=== PATIENT | female | born 1995 | race Caucasian/White ===

== ENCOUNTER → 2019-05-10 10:30 | Outpatient (BNVA) | payer OTHER, SELFPAY | PROVIDERS: Visit Provider Obstetrics & Gynecology Female Pelvic Medicine and Reconstructive Surgery | DX: N89.8 Other specified noninflammatory disorders of vagina (principal); Z12.4 Encounter for screening for malignant neoplasm of cervix; Z11.3 Encounter for screening for infections with a predominantly sexual mode of transmission | CPT/HCPCS: 87491; 87591; 87661 ==

== ENCOUNTER → 2019-10-02 13:40 | Outpatient (BNVA) | payer OTHER, SELFPAY | PROVIDERS: Visit Provider Obstetrics & Gynecology | DX: N89.8 Other specified noninflammatory disorders of vagina (principal); Z11.3 Encounter for screening for infections with a predominantly sexual mode of transmission; N94.6 Dysmenorrhea, unspecified; N93.9 Abnormal uterine and vaginal bleeding, unspecified; B96.89 Other specified bacterial agents as the cause of diseases classified elsewhere | CPT/HCPCS: 86592; 86803; 87340; 87491; 87591; 87661; 87806 ==

== ENCOUNTER 2021-01-26 08:13 | Emergency (ER) | payer OTHER, SELFPAY ==
[2021-01-26 08:25] VITALS: BP 132/72; PULSE 112; RESP 18; TEMP 37.2; O2SAT 98; BMI 35.4
--- NOTE | 2021-01-26 08:33 | CT_ITS ---
WS: [id number] CT ABDOMEN AND PELVIS WITH CONTRAST HISTORY: Lower abdominal pain. TECHNIQUE: Imaging performed of the abdomen and pelvis with IV contrast. Single phase imaging of the abdomen. Coronal and sagittal reformats are submitted. All CT scans at [facility] use at [address] one of these dose optimization techniques: automated exposure control; mA and/or kV adjustment per patient size (includes targeted exams where dose is matched to clinical indication); or iterative re construction. IV CONTRAST: Omnipaque 300; 95 mL IV. Oral contrast: No DLP: 1737.77 mGy.cm COMPARISON: None available. Lower thorax: Lung bases are clear. Heart is normal size. No hiatal hernia. Liver/biliary system: Normal size with no intrahepatic dilatation. Gallbladder: Normal. No gallstones or wall thickening. No pericholecystic fluid. Pancreas: Normal size pancreas and pancreatic duct. No adjacent inflammation. Spleen: Normal size spleen. No mass or infarct. Adrenal glands: Normal. Right kidney: Normal. Left kidney: Normal. Aorta: Normal. Lymphadenopathy: None. Free fluid: Small amount of physiologic free fluid in the cul-de-sac. GI tract: Normal appendix. No GI tract obstruction. Abdominal wall: Unremarkable abdominal wall. No hernia. Pelvis: Normal size uterus. Small follicles within each ovary. Greatest on the LEFT. LEFT follicle me asures 2.8 x 2.2 cm. Bones: Unremarkable. CT/CT abdomen pelvis w con* [id number] IMPRESSION: 1. Normal appendix. 2. No renal obstruction. 3. Bilateral ovarian follicles and a small amount of free fluid in the cul-de- sac is probably physiologic.
--- NOTE | 2021-01-26 08:43 | W.ED.ABDPA2 ---
HPI - Abdominal Pain General: Chief Complaint: Abdominal Pain Stated Complaint: abd pain Time Seen by Provider: 01/26/21 08:22 History of Present Illness: HPI narrative: 25-year-old female presents with complaints of abdominal pain and cramping that began overnight. She not had any vomitiing prior to arrival but vomited once after arriving here. She has had a lot of nausea and several episodes of diarrhea at home she denies any hematochezia melena hematemesis cough cramps no dysuria urgency or frequency she denies being sexually active than the last year. MD elicited complaint: abdominal pain Onset (ago): hour(s) Pain Consistency: constant Location: Pelvis Quality: cramping Radiation: none Migration to: no migration Exacerbating factors: nothing Relieving factors: nothing Associated Symptoms: Reports bloating, GI cramping and poor appetite; Denies anorexia, belching, change in bowel habits, change in stool character, chills, coffee ground emesis, constipation, diarrhea, dyspepsia, dysuria, excessive flatus, fever(s), heartburn, hematochezia, hematuria, hematemesis, fecal incontinence, loose stools, melena, nausea, syncope and vomiting Related Data: Date of Last Menstrual Period: 01/23/21 Review of Systems Const: Denies: fever(s) or chills ENMT: Denies: throat pain, ear or mastoid pain, nasal discharge or nasal congestion Card: Denies: syncope Resp: Denies: dyspnea, productive cough or non-productive cough GI: Reports: bloating and GI cramping; Denies: nausea, vomiting, hematemesis, coffee ground emesis, heartburn, diarrhea, constipation, belching, excessive flatus, fecal incontinence, change in bowel habits, change in stool character, hematochezia or melena : Denies: dysuria or hematuria Skin/Breast: Denies: rash or pruritus PFSH ED PFSH: Medical History Anxiety Diagnosed at the age of 19 or 20 and has been on medication since then. Denies any depressive symptoms. Patient denies medical problems Patient denies any past medical history of hypertension, diabetes, heart, lung, liver, kidney, thyroid, bleeding, or clotting problems. PCP: Dr. Yanira ([place] Surgical History History of tonsillectomy At the age of 21. History of wisdom tooth extraction Family History Grandmother Diabetes maternal Family/Other Uterine cancer maternal aunt, age at diagnosis unknown Ovarian cancer maternal aunt, age at diagnosis unknown Denies family history of Colon cancer Heart disease Hyperlipidemia Breast cancer Hypertension Thyroid condition Stroke Social History Smoking and tobacco status: never smoked Alcohol intake: unknown Additional social history: - Tobacco Use: Denies, never smoked Drug Use: Reports history of marijuana use as a teenager--only smoked two or three times--Denies any other drug use Alcohol Use: Drinks an alcoholic beverage four times yearly on average Work/Study Status: 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 [employer] Female Reproductive History: Date of last menstrual period: 01/23/21 Physical Exam Const: COMMON NORMALS: no acute distress GENERAL APPEARANCE: cooperative and comfortable ORIENTATION/CONSCIOUSNESS: Yes awake, Yes oriented to person, Yes oriented to place and Yes oriented to time HENMT: COMMON NORMALS: normocephalic, atraumatic, hearing grossly normal bilaterally, external ears normal, EAC's normal, TM's normal bilaterally, Normal nasal mucous membranes and turbinates present, moist oral mucous membranes and oropharynx normal HEAD & SCALP: normocephalic and atraumatic NOSE: Normal nasal mucous membranes and turbinates present EXTERNAL EAR: Yes external ears normal EXTERNAL AUDITORY CANAL: EAC's normal TYMPANIC MEMBRANE: TM's normal bilaterally Neck/C-Spine: COMMON NORMALS: no JVD Resp: COMMON NORMALS: normal respiratory effort, No retractions, No use of accessory muscles and clear to auscultation bilaterally AUSCULTATION: clear to auscultation bilaterally Cardio: COMMON NORMALS: no JVD, regular rate, regular rhythm and No murmurs present (Cardio) RATE: regular rate RHYTHM: regular rhythm GI: COMMON NORMALS: No hepatosplenomegaly present AUSCULTATION: Yes normoactive bowel sounds PALPATION: Yes Tenderness to palpation present (GI) (suprapubic), No Guarding due to palpation present (GI) and Yes No hepatosplenomegaly present Extremity: COMMON NORMALS: normal to inspection, capillary refill normal, no clubbing, cyanosis or edema, no calf tenderness and no pedal edema Neuro: SENSORIUM/ORIENTATION: Yes oriented to person, Yes oriented to place and Yes oriented to time Skin: COMMON NORMALS: no rashes or lesions noted GENERAL SKIN EXAM: no rashes or lesions noted Course Vital Signs: Vital signs: Vital Signs Temperature 99.0 F 01/26/21 08:25 Pulse Rate 95 01/26/21 12:42 Respiratory Rate 19 H 01/26/21 12:42 Blood Pressure 95/51 01/26/21 12:42 Pulse Oximetry 97 01/26/21 12:42 MDM - Abdominal Pain MDM Narrative: Medical decision making narrative: Reviewed labs and imaging the patient. Started on diclofenac as needed if has any worsening or change symptoms return continue the metronidazole she was given previously follow-up with primary care provider. Return to emergency room worsening symptoms. Lab Data: Labs: Lab Results 01/26/21 01/26/21 01/26/21 08:50 09:30 09:30 WBC 17.1 10^3/uL H 10 ^3/uL (4.0-10.0) RBC 5.25 10^6/uL 10^6 /uL (4.1-5.3) Hgb 14.9 g/dL g/dL (11.5-15.3) Hct 44.9 % % (37.0-47.0) MCV 85.5 fl fl (81-99) MCH 28.4 pg pg (28.0-34.0) MCHC 33.2 g/dL g/dL (30.0-36.0) RDW 12.5 % % (12.1-15.1) Plt Count 316 10^3/cmm 10^3 /cmm (130-400) MPV 10.4 fL fL (7.4-10.4) Neut % (Auto) 83.7 % % Lymph % (Auto) 9.0 % % [place] % (Auto) 5.9 % % Eos % (Auto) 0.7 % % Baso % (Auto) 0.3 % % Neut # (Auto) 14.29 10^3/uL H 1 0^3/uL (1.8-7.7) Lymph # (Auto) 1.5 10^3/uL 10^3/ uL (0.8-4.8) [place] # (Auto) 1.0 10^3/uL H 10^ 3/uL (0.2-0.9) Eos # (Auto) 0.1 10^3/uL 10^3/ uL (0.0-0.8) Baso # (Auto) 0.1 10^3/uL 10^3/ uL (0.0-0.1) Nucleated RBC % (a uto) 0 % % Nucleated RBCs # 0.0 /100WBC /100W BC Sodium 139 mmol/L mmol/L (136-145) Potassium 3.9 mmol/L mmol/L (3.5-5.1) Chloride 103 mmol/L mmol/L (98-107) Carbon Dioxide 23 mmol/L mmol/L (22-29) Anion Gap 16.9 (5-19) BUN 13 mg/dL mg/dL (6-20) Creatinine 0.5 mg/dL mg/dL (0.5-0.9) GFR Calculation 151.6 mL/min H mL /min (90-130) Glucose 104 mg/dL mg/dL (65-115) Calculated Osmolal ity 288 mOsm/kg mOsm/ kg (285-295) Calcium 9.4 mg/dL mg/dL (8.5-10.5) Total Bilirubin 0.3 mg/dL mg/dL (0.15-1.2) AST 13 U/L U/L (0-32) ALT 12 U/L U/L (0-33) Alkaline Phosphata se 84 IU/L IU/L (35-105) Total Protein 6.8 g/dL g/dL (6.6-8.7) Albumin 4.2 g/dL g/dL (3.5-5.2) Globulin 2.6 g/dL g/dL (1.3-4.6) Lipase 54 U/L U/L (13-60) HCG, Qual Urine Color Yellow (Yellow) Urine Appearance Clear (CLEAR) Urine pH 5 (5-7) Ur Specific Gravit y 1.020 (1.005-1.030) Urine Protein Neg (Negative) Urine Glucose (UA) Norm (Normal) Urine Ketones Negative (Negative) Urine Blood Neg (Negative) Urine Nitrate Negative (Negative) Urine Bilirubin Neg (Negative) Urine Urobilinogen Norm mg/dL mg/dL (Negative) Ur Leukocyte Shira ase Negative (Negative) 01/26/21 09:30 WBC RBC Hgb Hct MCV MCH MCHC RDW Plt Count MPV Neut % (Auto) Lymph % (Auto) [place] % (Auto) Eos % (Auto) Baso % (Auto) Neut # (Auto) Lymph # (Auto) [place] # (Auto) Eos # (Auto) Baso # (Auto) Nucleated RBC % (a uto) Nucleated RBCs # Sodium Potassium Chloride Carbon Dioxide Anion Gap BUN Creatinine GFR Calculation Glucose Calculated Osmolal ity Calcium Total Bilirubin AST ALT Alkaline Phosphata se Total Protein Albumin Globulin Lipase HCG, Qual Negative (Negative) Urine Color Urine Appearance Urine pH Ur Specific Gravit y Urine Protein Urine Glucose (UA) Urine Ketones Urine Blood Urine Nitrate Urine Bilirubin Urine Urobilinogen Ur Leukocyte Shira ase Discharge Plan Discharge Patient Disposition: Home Clinical Impression: Ovarian cyst Condition: Stable Prescriptions: New diclofenac sodium 75 mg tablet,delayed release (DR/EC) 75 mg PO Q12H PRN (Reason: pain) Qty: 20 RF: 0 No Action metronidazole [Metrogel Vaginal] 0.75 % gel 1 appful VAGINAL DAILY 5 Days Qty: 70 RF: 0 escitalopram oxalate [Lexapro] 10 mg tablet 20 mg PO DAILY RF: 0 losartan 25 mg tablet 25 mg PO DAILY RF: 0 norethindrone-e.estradiol-iron [Microgestin FE 04/22 ()] 1 mg-20 mcg (21)/75 mg (7) tablet 1 tab PO DAILY Qty: 28 RF: 0 Discharge Orders: Discharge ED (Routine); Ordered 01/26/21 Ordered By: Jose Francisco Judd Patient Instructions: Opioid Safety Coding Level of Care Code 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
[2021-01-26 09:03] VITALS: BP 101/70; PULSE 108; RESP 19; O2SAT 97
[2021-01-26 09:07] LABS: Add Urine Microscopic? NO; Charge for UA Resulting for Rev
[2021-01-26 09:15] LABS: Bilirubin Urine Neg (Negative); Blood Urine Neg (Negative); Glucose Urine UA Norm (Normal); Ketones Urine Negative (Negative); Leukocyte Esterase Urine Negative (Negative); Nitrate Urine Negative (Negative); Protein Urine Neg (Negative); Urine Appearance Clear (CLEAR); Urine Color Yellow (Yellow); Urobilinogen Urine Norm (Negative); pH Urine 5 (5-7)
[2021-01-26 09:35] LABS: Basophils # 0.1 10^3/uL (0.0-0.1); Basophils % 0.3 %; Eosinophils # 0.1 10^3/uL (0.0-0.8); Eosinophils % 0.7 %; Hematocrit 44.9 % (37.0-47.0); Hemoglobin 14.9 g/dL (11.5-15.3); Lymphocytes # 1.5 10^3/uL (0.8-4.8); Mean Corpuscular HGB Conc 33.2 g/dL (30.0-36.0); Mean Corpuscular Hemoglobin 28.4 pg (28.0-34.0); Mean Corpuscular Volume 85.5 fl (81-99); Mean Platelet Volume 10.4 fL (7.4-10.4); Monocytes % 5.9 %; Neutrophils # 14.29 10^3/uL (1.8-7.7); Neutrophils % 83.7 %; Nucleated Red Blood Cells % 0 %; Platelet Count 316 10^3/cmm (130-400); Red Blood Count 5.25 10^6/uL (4.1-5.3); Red Cell Distribution Width 12.5 % (12.1-15.1); White Blood Count 17.1 10^3/uL (4.0-10.0)
[2021-01-26 09:47] LABS: HCG, Serum Qual Negative (Negative)
[2021-01-26] MEDS: ondansetron 2 mg/ML SDV 2 mL 4 MG IVP (09:51)
[2021-01-26] MEDS: sodium chloride 0.9% 1,000 ML 999 ML IV (09:52)
[2021-01-26 09:56] VITALS: RESP 18; O2SAT 98
[2021-01-26] MEDS: morphine 4 mg/mL SDV 1 mL IVP (09:56)
--- NOTE | 2021-01-26 09:57 | PC.NURSE ---
RN administering medication, patient began to panic stating that she did not like the morphine and requested no more medication.
[2021-01-26 09:58] LABS: Alanine Aminotransferase 12 U/L (0-33); Albumin Level 4.2 g/dL (3.5-5.2); Alkaline Phosphatase 84 IU/L (35-105); Anion Gap 16.9 (5-19); Aspartate Amino Transferase 13 U/L (0-32); Blood Urea Nitrogen 13 mg/dL (6-20); Calcium 9.4 mg/dL (8.5-10.5); Carbon Dioxide 23 mmol/L (22-29); Chloride 103 mmol/L (98-107); Globulin 2.6 g/dL (1.3-4.6); Glomerular Filtration Rate 151.6 mL/min (90-130); Glucose 104 mg/dL (65-115); Lipase 54 U/L (13-60); Osmolality Calculated 288 mOsm/kg (285-295); Potassium 3.9 mmol/L (3.5-5.1); Sodium 139 mmol/L (136-145); Total Bilirubin 0.3 mg/dL (0.15-1.2); Total Protein 6.8 g/dL (6.6-8.7)
[2021-01-26] MEDS: iohexol 300 mg/mL 100 mL Btl IV (10:17)
[2021-01-26 11:15] VITALS: BP 126/60; PULSE 74; RESP 18; O2SAT 97
[2021-01-26 12:42] VITALS: BP 95/51; PULSE 95; RESP 19; O2SAT 97
== END 2021-01-26 12:36 | disposition home or self-care (01) ==
PROVIDERS: Emergency Provider Family Medicine
DX: N83.202 Unspecified ovarian cyst, left side (principal); N83.201 Unspecified ovarian cyst, right side; F41.9 Anxiety disorder, unspecified
CPT/HCPCS: 74177; 80053; 81003; 83690; 84703; 85025; 96361; 96374; 96375; 99283; J2270; J2405; J7030; Q9967

== ENCOUNTER 2021-06-11 11:11 | Emergency (ER) | payer BC, SELFPAY ==
[2021-06-11 11:17] VITALS: BP 137/87; PULSE 93; RESP 16; TEMP 37.2; O2SAT 95; BMI 35.4
--- NOTE | 2021-06-11 11:31 | XR_ITS ---
WS: [id number] Portable AP upright chest, 06/11/2021 Clinical Data: chest pain Comparison: None. Findings: No nodules, masses or effusions are seen. The heart is normal. The pulmonary vascularity is not increased. No pneumonia or pneumothorax is seen. Monitor leads are on the chest wall. XR/XR chest 1V portable [id number] Impression: Negative chest.
--- NOTE | 2021-06-11 11:31 | ECG_ITS ---
[facility] Test Date: 2021-06-11 Pat Name: Poppy Lauren Department: Room: Gender: Female Manager Of Pmo: : 1995 Requested By: Hortencia Turcios Order Number: [id number] Sullivan MD: Kelvin Underwood M.D. Measurements Intervals [place] Rate: 91 P: 43 WV: 116 QRS: 56 QRSD: 88 T: 30 QT: 340 QTc: 420 Interpretive Statements SINUS RHYTHM WITH SHORT [place] INTERVAL No previous ECG available for comparison Electronically Signed On 06-13-2021 15:49:17 CDT by Kelvin Underwood M.D. [id number]
--- NOTE | 2021-06-11 12:04 | W.ED.GENADLT ---
HPI - General Adult General: Chief complaint: Chest Pain Stated complaint: Chest pain when inhaling, fevor, cough Time Seen by Provider: 06/11/21 11:30 History of Present Illness: Patient is a 25-year-old female with no significant past medical history presents the emergency room for evaluation of new onset of fever x2 days, diarrhea, and pleuritic chest pain x 1 day in setting of decreased p.o. intake. Patient went to urgent care yesterday received Tylenol was told to go home. This morning, patient says symptoms has not improved and she has had decreased p.o. intake. Patient said to come to the emergency room for an evaluation. Patient denies any vomiting, diarrhea, melena/hematochezia. Patient has no urinary complaint. Patient reports pleuritic chest pain lasting for few minutes earlier today with inspiration. Patient is currently on for OCP. Onset:2 days ago Duration:2 days Location:home Severity:moderate Associated symptoms: Reports chest pain and nausea; Deny dyspnea, rash, palpitations or vomiting Review of Systems Const: Reports: fever(s) and chills Eyes: Denies: change in vision ENMT: Denies: mouth pain Card: Reports: chest pain; Denies: palpitations Resp: Denies: dyspnea or non-productive cough GI: Reports: nausea, diarrhea and other (+decreased appetite); Denies: abdominal pain or vomiting : Denies: dysuria Musc: Denies: extremity pain Skin/Breast: Denies: rash or new lesions Neuro: Denies: weakness in extremities Psych: Reports: other (Normal mood) Gregory/Lymph: Denies: easy bruising PFS ED PFSH: Medical History Anxiety Diagnosed at the age of 19 or 20 and has been on medication since then. Denies any depressive symptoms. Patient denies medical problems Patient denies any past medical history of hypertension, diabetes, heart, lung, liver, kidney, thyroid, bleeding, or clotting problems. PCP: Dr. Doyle ([place]) [facility] Surgical History History of tonsillectomy At the age of 21. History of wisdom tooth extraction Family History Grandmother Diabetes maternal Family/Other Uterine cancer maternal aunt, age at diagnosis unknown Ovarian cancer maternal aunt, age at diagnosis unknown Denies family history of Colon cancer Heart disease Hyperlipidemia Breast cancer Hypertension Thyroid condition Stroke Social History Smoking and tobacco status: never smoked Alcohol intake: unknown Additional social history: - Tobacco Use: Denies, never smoked Drug Use: Reports history of marijuana use as a teenager--only smoked two or three times--Denies any other drug use Alcohol Use: Drinks an alcoholic beverage four times yearly on average Work/Study Status: 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 [employer] Female Reproductive History: Date of last menstrual period: 01/23/21 Physical Exam Const: COMMON NORMALS: alert HENMT: COMMON NORMALS: atraumatic HEAD & SCALP: atraumatic MOUTH: moist mucous membranes abnormal Eye: COMMON NORMALS: EOMs intact bilaterally and conjunctivae normal CONJUNCTIVA: Yes conjunctivae normal Neck/C-Spine: COMMON NORMALS: full ROM and supple Resp: COMMON NORMALS: normal respiratory effort and clear to auscultation bilaterally AUSCULTATION: clear to auscultation bilaterally Cardio: COMMON NORMALS: regular rate RATE: regular rate OTHER: 2+ radial pulses b/l GI: COMMON NORMALS: Soft to palpation and non-tender PALPATION: Yes Soft to palpation Extremity: COMMON NORMALS: full ROM Neuro: SENSORIUM/ORIENTATION: Yes alert MOTOR EXAM: No Abnormal motor strength present and Other motor observations present (no focal motor deficits) Psych: COMMON NORMALS: speech normal SPEECH: Yes normal speech MOOD & AFFECT: Yes euthymic mood Course Vital Signs: Vital signs: Vital Signs Temperature 98.9 F 06/11/21 11:17 Pulse Rate 76 06/11/21 16:20 Respiratory Rate 14 06/11/21 16:20 Blood Pressure 97/63 06/11/21 16:20 Pulse Oximetry 96 06/11/21 16:20 [facility] - General Adult Medical Decision Making 25-year-old female presented to emergency room for evaluation of fever, pleuritic chest pain, and diarrhea. On exam, patient is hemodynamically stable, no focal findings on physical exam. Doubt ACS/PE or other emergent causes of chest pain. No suspicion for aortic dissection given no widened mediastinum, 2+ upper extremity pulses, or tearing pain. XR normal. Patient's D-dimer was positive. Initial CT is suboptimal for evaluation of PE. I discussed this with family that I do not see any large blood clots in the pulmonary trunks but the CT evaluation is limited by poor contrast timing. However upon hearing this, patient and family elects for additional CT evaluation to ensure that there is no blood clot. Repeat CTA showed no large PEs. However limited visualization of the distal branches. I have discussed all these findings with patient and patient would like to follow-up closely with outpatient provider. Is given strict return precaution for any signs of dehydration, pleuritic chest pain, hemopytosis dyspnea, or any new or concerning complaints I have given patient follow up with our casework specialist to be seen by [facility] for close follow up of symptoms today. Patient aware of a call from our casework specialist to schedule for appointment(s) and verbalizes understanding of the importance of following up. Rx tylenol PRN abd pain, maalox/pepcid PRN dyspepsia, and zofran PRN nausea/vomiting Disposition: Discharge. Patient counseled regarding diagnostic impression, treatment plan. Patient given ED strict return precautions to return for continuation, worsening, or development of new symptoms. Instructed to f/u w/ PCP regarding symptoms today. Patient verbalized understanding. Lab Data : 06/11/21 12:02 06/11/21 12:02 Radiology Impressions Chest X-Ray 06/11/21 11:31 Impression: Negative chest. Chest CTA 06/11/21 14:34 IMPRESSION: Repeat imaging of the pulmonary arteries is still suboptimal. No large central pulmonary embolism. Laboratory Results WBC 9.4 10^3/uL (4.0-10.0) 06/11/21 12:02 RBC 5.23 10^6/uL (4.1-5.3) 06/11/21 12:02 Hgb 14.9 g/dL (11.5-15.3) 06/11/21 12:02 Hct 44.7 % (37.0-47.0) 06/11/21 12:02 MCV 85.5 fl (81-99) 06/11/21 12:02 MCH 28.5 pg (28.0-34.0) 06/11/21 12:02 MCHC 33.3 g/dL (30.0-36.0) 06/11/21 12:02 RDW 12.4 % (12.1-15.1) 06/11/21 12:02 Plt Count 297 10^3/cmm (130-400) 06/11/21 12:02 MPV 10.4 fL (7.4-10.4) 06/11/21 12:02 Neut % (Auto) 69.1 % 06/11/21 12:02 Lymph % (Auto) 21.6 % 06/11/21 12:02 [place] % (Auto) 8.3 % 06/11/21 12:02 Eos % (Auto) 0.2 % 06/11/21 12:02 Baso % (Auto) 0.3 % 06/11/21 12:02 Neut # (Auto) 6.47 10^3/uL (1.8-7.7) 06/11/21 12:02 Lymph # (Auto) 2.0 10^3/uL (0.8-4.8) 06/11/21 12:02 [place] # (Auto) 0.8 10^3/uL (0.2-0.9) 06/11/21 12:02 Eos # (Auto) 0.0 10^3/uL (0.0-0.8) 06/11/21 12:02 Baso # (Auto) 0.0 10^3/uL (0.0-0.1) 06/11/21 12:02 Nucleated RBC % (auto) 0 % 06/11/21 12:02 Nucleated RBCs # 0.0 /100WBC 06/11/21 12:02 D-Dimer 1.02 ug/mIFEU (0-0.59) H 06/11/21 12:11 Sodium 137 mmol/L (136-145) 06/11/21 12:02 Potassium 3.3 mmol/L (3.5-5.1) L 06/11/21 12:02 Chloride 100 mmol/L (98-107) 06/11/21 12:02 Carbon Dioxide 24 mmol/L (22-29) 06/11/21 12:02 Anion Gap 16.3 (5-19) 06/11/21 12:02 BUN 10 mg/dL (6-20) 06/11/21 12:02 Creatinine 0.7 mg/dL (0.5-0.9) 06/11/21 12:02 GFR Calculation 102.8 mL/min (90-130) 06/11/21 12:02 Glucose 91 mg/dL (65-115) 06/11/21 12:02 Calculated Osmolality 283 mOsm/kg (285-295) L 06/11/21 12:02 Calcium 9.5 mg/dL (8.5-10.5) 06/11/21 12:02 HCG, Qual Negative (Negative) 06/11/21 12:02 Coronavirus 229E (PCR) Not detected (NOT DETECT) 06/11/21 12:20 SARS-CoV-2 (PCR) Not detected (NOT DETECT) 06/11/21 12:20 Imaging Data Other Imaging: Radiologist's impression: [facility] [address] [place] [address]. [place] [address] XRay Report Signed Patient: Poppy Lauren Unit #: [id number] : 1995 Age/Sex: 25 / F ADM Date: 06/11/21 Loc: ER Room/Bed: Attending Dr: Ordering Provider/Ordering MD: Hortencia Turcios MD Date of Service: 06/11/21 Procedure(s): XR chest 1V portable [id number] Accession Number(s): [id number] Report Number: [id number] WS: [id number] Portable AP upright chest, 06/11/2021 Clinical Data: chest pain Comparison: None. Findings: No nodules, masses or effusions are seen. The heart is normal. The pulmonary vascularity is not increased. No pneumonia or pneumothorax is seen. Monitor leads are on the chest wall. XR/XR chest 1V portable [id number] Impression: Negative chest. ? Dictated By: Diana Friedman MD Signed By: Diana Friedman MD Signed Date/Time: 06/11/21 1151 DD/ [address] [facility] [address] [place] [id number] Scan Report Signed Patient: Poppy Lauren Unit #: [id number] : 1995 Age/Sex: 25 / F ADM Date: 06/11/21 Loc: ER Room/Bed: Attending Dr: Ordering Provider/Ordering MD: Hortencia Turcios MD Date of Service: 06/11/21 Procedure(s): CT angio chest PE protcl [id number] Accession Number(s): [id number] Report Number: [id number] WS: [id number] CT CHEST ANGIOGRAPHY WITH REFORMATS HISTORY: Dyspnea. TECHNIQUE: Contiguous axial images are obtained through the chest during arterial injection of intravenous contrast. Images are reconstructed to evaluate the pulmonary arteries. MIP imaging also reviewed.? All CT scans at [facility] use at least one of these dose optimization techniques: automated exposure control; mA and/or kV adjustment per patient size (includes targeted exams where dose is matched to clinical indication); or iterative reconstruction. CONTRAST: Omnipaque 350; 63 mL IV. DLP: 529.6 mGy.cm COMPARISON: Study earlier the same day. Poor opacification of the pulmonary arteries continues despite the repeat imaging. There is no large central pulmonary embolism. There is significant artifact throughout the chest and pulmonary arteries. Normal size pulmonary artery. No RIGHT heart strain. No pneumonia. No adenopathy. CT/CT angio chest PE protcl [id number] IMPRESSION: ? Repeat imaging of the pulmonary arteries is still suboptimal. No large central pulmonary embolism. ? ? ? Dictated By: Joana Pérez DO Signed By: Joana Pérez DO Signed Date/Time: 06/11/21 1516 DD/ [address] [address] [address] Scan Report Signed Patient: Poppy Lauren Unit #: [id number] : 1995 Age/Sex: 25 / F ADM Date: 06/11/21 Loc: ER Room/Bed: Attending Dr: Ordering Provider/Ordering MD: Hortencia Turcios MD Date of Service: 06/11/21 Procedure(s): CT angio chest PE protcl [id number] Accession Number(s): [id number] Report Number: [id number] WS: [email or web address] CT CHEST ANGIOGRAPHY WITH REFORMATS HISTORY: Dyspnea. TECHNIQUE: Contiguous axial images are obtained through the chest during arterial injection of intravenous contrast. Images are reconstructed to evaluate the pulmonary arteries. MIP imaging also reviewed.? All CT scans at [facility] use at least one of these dose optimization techniques: automated exposure control; mA and/or kV adjustment per patient size (includes targeted exams where dose is matched to clinical indication); or iterative reconstruction. CONTRAST: Omnipaque 350; 63 mL IV. DLP: 529.6 mGy.cm COMPARISON: Study earlier the same day. Poor opacification of the pulmonary arteries continues despite the repeat imaging. There is no large central pulmonary embolism. There is significant artifact throughout the chest and pulmonary arteries. Normal size pulmonary artery. No RIGHT heart strain. No pneumonia. No adenopathy. CT/CT angio chest PE protcl [id number] IMPRESSION: ? Repeat imaging of the pulmonary arteries is still suboptimal. No large central pulmonary embolism. ? ? ? Dictated By: Joana Pérez DO Signed By: Joana Pérez DO Signed Date/Time: 06/11/211515 DD/ 11 Discharge Plan Discharge Patient Disposition: Home Clinical Impression: Chest pain, Diarrhea, Nausea, Decrease in appetite Condition: Stable Prescriptions: New acetaminophen 500 mg tablet 500 mg PO Q6H PRN (Reason: pain) 5 Days Qty: 20 0RF Pepcid 20 mg tablet 20 mg PO BID PRN (Reason: abdominal pain) 10 Days Qty: 20 0RF Maalox Advanced 1,000-60 mg tablet,chewable 1 tab PO TID PRN (Reason: abdominal pain) 7 Days Qty: 21 0RF No Action metronidazole [Metrogel Vaginal] 0.75 % gel 1 appful VAGINAL DAILY 5 Days Qty: 70 0RF escitalopram oxalate [Lexapro] 10 mg tablet 20 mg PO DAILY 0RF losartan 25 mg tablet 25 mg PO DAILY 0RF 1.5/30 (28) 1.5 mg-30 mcg (21)/75 mg (7) tablet 1 tab PO DAILY 0RF Discharge Orders: Discharge ED (Routine); Ordered 06/11/21 Ordered By: Hortencia Turcios Discharge Diet: Advance as tolerated Discharge Activity: Increase activity as tolerated Patient Instructions: Chest Pain (ED), Acute Diarrhea (ED) Activity Restrictions/Additional Instructions: Come back to the emergency room if your symptoms worsen, have any shortness of breath, fever/chills, dehydration, inability tolerate food or drinks, any difficulty breathing, or any new or concerning complaints. Stand Alone Forms: Work/School Release Coding Level of Care Code ED Test Development Engineer for Chg Fwd Exam Comprehensive
--- NOTE | 2021-06-11 12:12 | PC.NURSE ---
Continuous cardiac, BP, and SpO2 monitoring initiated upon arrival into room.
[2021-06-11 12:15] LABS: Basophils % 0.3 %; Eosinophils % 0.2 %; Hematocrit 44.7 % (37.0-47.0); Hemoglobin 14.9 g/dL (11.5-15.3); Lymphocytes % 21.6 %; Mean Corpuscular HGB Conc 33.3 g/dL (30.0-36.0); Mean Corpuscular Hemoglobin 28.5 pg (28.0-34.0); Mean Corpuscular Volume 85.5 fl (81-99); Mean Platelet Volume 10.4 fL (7.4-10.4); Monocytes # 0.8 10^3/uL (0.2-0.9); Monocytes % 8.3 %; Neutrophils # 6.47 10^3/uL (1.8-7.7); Neutrophils % 69.1 %; Nucleated Red Blood Cells % 0 %; Platelet Count 297 10^3/cmm (130-400); Red Blood Count 5.23 10^6/uL (4.1-5.3); Red Cell Distribution Width 12.4 % (12.1-15.1); White Blood Count 9.4 10^3/uL (4.0-10.0)
[2021-06-11 12:26] LABS: Anion Gap 16.3 (5-19); Blood Urea Nitrogen 10 mg/dL (6-20); Calcium 9.5 mg/dL (8.5-10.5); Carbon Dioxide 24 mmol/L (22-29); Chloride 100 mmol/L (98-107); Glomerular Filtration Rate 102.8 mL/min (90-130); Glucose 91 mg/dL (65-115); Osmolality Calculated 283 mOsm/kg (285-295); Potassium 3.3 mmol/L (3.5-5.1); Sodium 137 mmol/L (136-145)
[2021-06-11 12:36] LABS: D Dimer 1.02 ug/mIFEU (0-0.59)
[2021-06-11 12:39] LABS: HCG, Serum Qual Negative (Negative)
--- NOTE | 2021-06-11 12:49 | CT_ITS ---
WS: [id number] CT CHEST ANGIOGRAPHY WITH REFORMATS HISTORY: eval for pe, chest pain and elevated d-dimer. TECHNIQUE: Contiguous axial images are obtained through the chest during arterial injection of intrav enous contrast. Images are reconstructed to evaluate the pulmonary arteries. MIP imaging also reviewe d. All CT scans at [facility] use at least one of these dose optimization techniques: automat ed exposure control; mA and/or kV adjustment per patient size (includes targeted exams where dose is matched to clinical indication); or iterative reconstruction. CONTRAST: Omnipaque 300; 65 mL IV. DLP: 548.36 mGy.cm COMPARISON: None available. This is a very limited and suboptimal evaluation of the pulmonary arteries. There is mixing of contra st with blood and poor opacification of the artery. There is also artifact through the chest secondar y to soft tissue. Pulmonary artery size is normal. No RIGHT heart strain. No pericardial effusion. No rmal size aorta. Lungs are clear. No pneumonia. No pneumonitis. No pericardial pleural effusion. No mediastinal or hil ar adenopathy. There is mild residual thymic tissue present. Decreased attenuation throughout the liver from hepatic steatosis. No osseous abnormality. CT/CT angio chest PE protcl [id number] IMPRESSION: 1. Suboptimal opacification of the pulmonary arteries. Cannot exclude pulmonar y embolism due to artifact from soft tissue in the bolus injection being subopt imal. Depending on the level of concern repeat CT angiogram could be performed. 2. No pneumonia. 3. No RIGHT heart strain.
[2021-06-11] MEDS: sodium chloride 0.9% 1,000 ML 999 ML IV (12:56)
[2021-06-11] MEDS: lidocaine 2% viscous 15 ML, aluminum-mag hydrox-simethicon 30 ML, sucralfate oral liq 1 GM PO (13:01)
[2021-06-11] MEDS: acetaminophen 500 mg Tablet PO (13:04)
[2021-06-11] MEDS: iohexol 350 mg/mL 100 mL Btl IV (14:04)
[2021-06-11 14:12] LABS: Adenovirus Not Detected (NOT DETECT); Chlamydia Pneumoniae Not Detected (NOT DETECT); Coronavirus 229E,HKU1,NL63,OC4 Not Detected (NOT DETECT); Human Metapneumovirus Not Detected (NOT DETECT); Human Rhinovirus/Enterovirus Not Detected (NOT DETECT); Influenza A Not Detected (NOT DETECT); Influenza A H1 Not Detected (NOT DETECT); Influenza A H1-2009 Not Detected (NOT DETECT); Influenza A H3 Not Detected (NOT DETECT); Influenza B Not Detected (NOT DETECT); Mycoplasma Pneumoniae Not Detected (NOT DETECT); Parainfluenza Virus Type 1 Not Detected (NOT DETECT); Parainfluenza Virus Type 2 Not Detected (NOT DETECT); Parainfluenza Virus Type 3 Not Detected (NOT DETECT); Parainfluenza Virus Type 4 Not Detected (NOT DETECT); Respiratory Syncytial Virus A Not Detected (NOT DETECT); Respiratory Syncytial Virus B Not Detected (NOT DETECT); SARS-COV-2 Not Detected (NOT DETECT)
--- NOTE | 2021-06-11 14:34 | CT_ITS ---
WS: [id number] CT CHEST ANGIOGRAPHY WITH REFORMATS HISTORY: Dyspnea. TECHNIQUE: Contiguous axial images are obtained through the chest during arterial injection of intrav enous contrast. Images are reconstructed to evaluate the pulmonary arteries. MIP imaging also reviewe d. All CT scans at [facility] use at least one of these dose optimization techniques: automat ed exposure control; mA and/or kV adjustment per patient size (includes targeted exams where dose is matched to clinical indication); or iterative reconstruction. CONTRAST: Omnipaque 350; 63 mL IV. DLP: 529.6 mGy.cm COMPARISON: Study earlier the same day. Poor opacification of the pulmonary arteries continues despite the repeat imaging. There is no large central pulmonary embolism. There is significant artifact throughout the chest and pulmonary arteries . Normal size pulmonary artery. No RIGHT heart strain. No pneumonia. No adenopathy. CT/CT angio chest PE protcl [id number] IMPRESSION: Repeat imaging of the pulmonary arteries is still suboptimal. No large central pulmonary embolism.
[2021-06-11] MEDS: LORazepam 1 mg Tablet PO (14:56)
[2021-06-11] MEDS: metoprolol tartrate 1 mg/1 mL SDV 5 mL 5 MG IVP (14:57)
[2021-06-11] MEDS: iodixanol 320 mg/mL 100mL Btl IV (15:08)
[2021-06-11 16:20] VITALS: BP 97/63; PULSE 76; RESP 14; O2SAT 96
--- NOTE | 2021-06-23 12:46 | DCPLANNER ---
manager surgical had message to speak with patient about getting established with a primary care physician. manager surgical unable to speak with patient or leave a voicemail at this time.
== END 2021-06-11 15:56 | disposition home or self-care (01) ==
PROVIDERS: Emergency Provider Emergency Medicine
DX: R07.9 Chest pain, unspecified (principal); R19.7 Diarrhea, unspecified; R11.0 Nausea; R63.0 Anorexia; R06.00 Dyspnea, unspecified; Z68.35 Body mass index [BMI] 35.0-35.9, adult; Z79.3 Long term (current) use of hormonal contraceptives; Z20.822 Contact with and (suspected) exposure to COVID-19
CPT/HCPCS: 71045; 71275; 80048; 84703; 85025; 85378; 87635; 93005; 96361; 96374; 99284; J3490; J7030; Q9967

== ENCOUNTER 2022-04-25 14:00 | Outpatient (CLI) | payer BC, SELFPAY | END 2022-04-25 14:01 | disposition home or self-care (01) | LOC: SLEEP 04-26 09:35 | PROVIDERS: Visit Provider Family Medicine | DX: G47.10 Hypersomnia, unspecified (principal) | CPT/HCPCS: G0399 ==

== ENCOUNTER 2024-06-21 16:01 | Emergency (ER) | payer BC, SELFPAY ==
[2024-06-21 16:05] VITALS: BP 116/76; PULSE 67; RESP 18; TEMP 36.7; O2SAT 98; BMI 37.2
--- NOTE | 2024-06-21 17:29 | W.ED.GENADLT ---
Documented by User: [email or web address] Ware 06/21/24 17:31 HPI - General Adult General: Chief complaint: General Medical Stated complaint: rabies exposure Time Seen by Provider: 06/21/24 17:05 Source: patient Mode of arrival: ambulatory Limitations: no limitations History of Present Illness: Patient is a 28-year-old female who presents the emergency department for rabies vaccination series, referred to the ED by health department. Patient's dog was recently attacked by a skunk, her dad shot the skunk and through the health department the skunk tested positive for rabies. In between this incident and now, patient's dog licked her on the mouth and she was told to present to begin the vaccination series. No symptoms reported. MD complaint: Present for rabies vaccination series Associated symptoms: Deny chest pain, dyspnea, headache(s), nausea, rash, palpitations or vomiting Related Data Home Medications ?Medication ?Instructions ?Recorded ?Confirmed escitalopram oxalate 10 mg tablet 20 mg PO DAILY 01/25/21 10/18/23 (Lexapro) losartan 25 mg tablet 25 mg PO DAILY 01/25/21 10/18/23 metformin 500 mg tablet 500 mg PO DAILY 10/18/23 10/18/23 Previous Rx's ?Medication ?Instructions ?Recorded meloxicam 7.5 mg tablet 7.5 mg PO DAILY #14 tabs 07/17/22 cyclobenzaprine 5 mg tablet 5 mg PO TID PRN muscle spasm #20 10/18/23 tabs Allergies Allergy/AdvReac Type Severity Reaction Status Date / Time Penicillins Allergy Intermediate can't Verified 01/30/24 14:40 recall Review of Systems General: Reports: 10 or more systems reviewed and unremarkable except in HPI and below Const: Reports: other (Presents for rabies vaccination series); Denies: fever(s), chills or fatigue Eyes: Denies: change in vision ENMT: Denies: throat pain, ear or mastoid pain or nasal discharge Card: Denies: chest pain, palpitations, swelling of feet/ankles or lightheadedness Resp: Denies: dyspnea, productive cough or wheezing GI: Denies: abdominal pain, nausea, vomiting, diarrhea or constipation Musc: Denies: neck pain, back pain or joint pain Skin/Breast: Denies: rash Neuro: Denies: headache(s), numbness in extremities or weakness in extremities [facility] ED PFSH: Medical History Patient denies medical problems Patient denies any past medical history of hypertension, diabetes, heart, lung, liver, kidney, thyroid, bleeding, or clotting problems. PCP: Dr. Doyle ([place]) Anxiety Diagnosed at the age of 19 or 20 and has been on medication since then. Denies any depressive symptoms. Surgical History History of wisdom tooth extraction History of tonsillectomy At the age of 21. Family History Grandmother Diabetes maternal Family/Other Uterine cancer maternal aunt, age at diagnosis unknown Ovarian cancer maternal aunt, age at diagnosis unknown Denies family history of Colon cancer Heart disease Hyperlipidemia Breast cancer Hypertension Thyroid disease Stroke Social History Smoking and tobacco/nicotine status: unknown if used tobacco/nicotine Alcohol intake: unknown Substance/Drug Use: former Date of last use: Used marijauana twice in high school; denies use since then Additional social history: - Tobacco Use: Denies, never smoked Drug Use: Reports history of marijuana use as a teenager--only smoked two or three times--Denies any other drug use Alcohol Use: Drinks an alcoholic beverage four times yearly on average Work/Study Status: 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 [employer] Physical Exam Const: COMMON NORMALS: no acute distress, patient oriented x3 and no limitations GENERAL APPEARANCE: cooperative, comfortable and well developed ORIENTATION/CONSCIOUSNESS: Yes awake, Yes oriented to person, Yes oriented to place and Yes oriented to time HENMT: COMMON NORMALS: normocephalic, atraumatic and hearing grossly normal bilaterally HEAD & SCALP: normocephalic and atraumatic Eye: COMMON NORMALS: Equal, round and reactive pupils present, EOMs intact bilaterally and conjunctivae normal CONJUNCTIVA: Yes conjunctivae normal PUPIL: Yes Equal, round and reactive pupils present Neck/C-Spine: COMMON NORMALS: full ROM, supple and no JVD Resp: COMMON NORMALS: normal respiratory effort, No retractions, No use of accessory muscles and clear to auscultation bilaterally AUSCULTATION: clear to auscultation bilaterally Cardio: COMMON NORMALS: no JVD, regular rate, regular rhythm, No clicks present (Cardio), No murmurs present (Cardio) and No rub (Cardio) RATE: regular rate RHYTHM: regular rhythm Extremity: COMMON NORMALS: normal to inspection, full ROM and capillary refill normal Neuro: COMMON NORMALS: patient oriented x3, moves all extremities, no focal motor deficits and no sensory deficits noted SENSORIUM/ORIENTATION: Yes oriented to person, Yes oriented to place and Yes oriented to time Psych: COMMON NORMALS: mental status grossly normal and Normal thought process present THOUGHT PROCESS: Normal thought process present Skin: COMMON NORMALS: no rashes or lesions noted GENERAL SKIN EXAM: no rashes or lesions noted Course Vital Signs: Vital signs: Vital Signs Temperature 98.0 F 06/21/24 16:05 Pulse Rate 67 06/21/24 16:05 Respiratory Rate 18 06/21/24 16:05 Blood Pressure 116/76 06/21/24 16:05 Pulse Oximetry 98 06/21/24 16:05 Oxygen Delivery Me thod Room Air 06/21/24 16:05 MDM - General Adult Medical Decision Making Presented for rabies vaccination series after exposure to family dog who was attacked by rabies positive skunk. HyperRAB and RabAvert administered and follow-up given for subsequent RabAvert vaccinations. Normal vitals, asymptomatic. No radiology studies performed this visit Discharge Plan Discharge Patient Disposition: Home Clinical Impression: Exposure to rabies Condition: Stable Prescriptions: No Action escitalopram oxalate [Lexapro] 10 mg tablet 20 mg PO DAILY losartan 25 mg tablet 25 mg PO DAILY meloxicam 7.5 mg tablet 7.5 mg PO DAILY Qty: 14 0RF metformin 500 mg tablet 500 mg PO DAILY cyclobenzaprine 5 mg tablet 5 mg PO TID PRN (Reason: muscle spasm) Qty: 20 0RF Discharge Orders: Discharge ED (Routine); Ordered 06/21/24 Ordered By: Adam Boothe Patient Instructions: Rabies (ED) Activity Restrictions/Additional Instructions: Follow-up as directed for subsequent rabies vaccinations. Apply ice to injection site for any pain, take ibuprofen. Return with any new or worsening. 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[employer] Documented by User: Jose Francisco Judd DO 06/24/24 06:45 HPI - General Adult General: Chief complaint: General Medical Stated complaint: rabies exposure Time Seen by Provider: 06/21/24 17:05 Related Data Home Medications ?Medication ?Instructions ?Recorded ?Confirmed escitalopram oxalate 10 mg tablet 20 mg PO DAILY 01/25/21 10/18/23 (Lexapro) losartan 25 mg tablet 25 mg PO DAILY 01/25/21 10/18/23 metformin 500 mg tablet 500 mg PO DAILY 10/18/23 10/18/23 Previous Rx's ?Medication ?Instructions ?Recorded meloxicam 7.5 mg tablet 7.5 mg PO DAILY #14 tabs 07/17/22 cyclobenzaprine 5 mg tablet 5 mg PO TID PRN muscle spasm #20 10/18/23 tabs Allergies Allergy/AdvReac Type Severity Reaction Status Date / Time Penicillins Allergy Intermediate can't Verified 01/30/24 14:40 recall PFSH ED PFSH: Medical History Patient denies medical problems Patient denies any past medical history of hypertension, diabetes, heart, lung, liver, kidney, thyroid, bleeding, or clotting problems. PCP: Dr. Doyle ([place]) Anxiety Diagnosed at the age of 19 or 20 and has been on medication since then. Denies any depressive symptoms. Surgical History History of wisdom tooth extraction History of tonsillectomy At the age of 21. Family History Grandmother Diabetes maternal Family/Other Uterine cancer maternal aunt, age at diagnosis unknown Ovarian cancer maternal aunt, age at diagnosis unknown Denies family history of Colon cancer Heart disease Hyperlipidemia Breast cancer Hypertension Thyroid disease Stroke Social History Smoking and tobacco/nicotine status: unknown if used tobacco/nicotine Alcohol intake: unknown Substance/Drug Use: former Date of last use: Used roddyjauana twice in high school; denies use since then Additional social history: - Tobacco Use: Denies, never smoked Drug Use: Reports history of marijuana use as a teenager--only smoked two or three times--Denies any other drug use Alcohol Use: Drinks an alcoholic beverage four times yearly on average 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 HyperRAB and RabAvert administered and follow-up given for subsequent RabAvert vaccinations. Normal vitals, asymptomatic. Chart reviewed Discharge Plan Discharge Patient Disposition: Home Clinical Impression: Exposure to rabies Condition: Stable Prescriptions: No Action escitalopram oxalate [Lexapro] 10 mg tablet 20 mg PO DAILY losartan 25 mg tablet 25 mg PO DAILY meloxicam 7.5 mg tablet 7.5 mg PO DAILY Qty: 14 0RF metformin 500 mg tablet 500 mg PO DAILY cyclobenzaprine 5 mg tablet 5 mg PO TID PRN (Reason: muscle spasm) Qty: 20 0RF Discharge Orders: Discharge ED (Routine); Ordered 06/21/24 Ordered By: Adam Boothe Patient Instructions: Rabies (ED) Activity Restrictions/Additional Instructions: Follow-up as directed for subsequent rabies vaccinations. Apply ice to injection site for any pain, take ibuprofen. Return with any new or worsening. 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
[2024-06-21] MEDS: rabies vaccine 2.5 unit SDV IM (17:53)
[2024-06-21] MEDS: rabies IG 300 unit/mL SDV 1 mL 1920 UNIT IM (17:54)
== END 2024-06-21 18:11 | disposition home or self-care (01) ==
PROVIDERS: Emergency Provider Physician Assistant
DX: Z20.3 Contact with and (suspected) exposure to rabies (principal); Z29.14 Encounter for prophylactic rabies immune globulin; Z23 Encounter for immunization
CPT/HCPCS: 90375; 90471; 90675; 96372; 99283

== ENCOUNTER 2024-06-28 08:00 | Oncology outpatient (recurring) (ONCR) | payer BC, SELFPAY ==
[2024-06-24 16:15] VITALS: BP 124/86; PULSE 73; RESP 16; TEMP 36.5; O2SAT 97
[2024-06-24] MEDS: rabies vaccine 2.5 unit SDV IM (16:19)
[2024-06-28] MEDS: rabies vaccine 2.5 unit SDV IM (08:05)
[2024-06-28 08:12] VITALS: BP 117/79; PULSE 78; RESP 18; TEMP 36.3; O2SAT 98
== END 2024-07-01 23:59 | disposition home or self-care (01) ==
PROVIDERS: Visit Provider Physician Assistant
DX: Z53.9 Procedure and treatment not carried out, unspecified reason; Z23 Encounter for immunization; Z20.3 Contact with and (suspected) exposure to rabies
CPT/HCPCS: 90471; 90675

== ENCOUNTER 2024-07-05 07:49 | Oncology outpatient (recurring) (ONCR) | payer BC, SELFPAY ==
[2024-07-05] MEDS: rabies vaccine 2.5 unit SDV IM (08:05)
== END 2024-07-31 23:59 | disposition home or self-care (01) ==
LOC: ONCMED 07:49
PROVIDERS: Visit Provider Physician Assistant
DX: Z23 Encounter for immunization (principal); Z20.3 Contact with and (suspected) exposure to rabies
CPT/HCPCS: 90471; 90675